=== PATIENT | female | born 1940 | race Asian ===

== ENCOUNTER 2019-04-28 11:23 | Emergency (ER) | payer OTHER ==
[~2019-04-28] VITALS: Ht 157.5 cm; Wt 87.5 kg
[2019-04-28 11:23] VITALS: BP 187/80; TEMP 97.7
[2019-04-28 12:10] LABS: PLATELET COUNT 207 K/uL (152-353)
[2019-04-28 12:17] LABS: POTASSIUM 4.2 mmol/L (3.6-5.2)
[2019-04-28] MEDS ORDERED: DIVA125C PO ×2 (13:39→13:40)
[2019-04-28] MEDS ORDERED: CORRECTOL100 MG PO (13:42)
[2019-04-28] MEDS ORDERED: DONEPEZIL HYDRO10 M1 PO (13:43)
[2019-04-28] MEDS ORDERED: FERROUS SULF325 M1 PO (13:44)
[2019-04-28] MEDS ORDERED: KP FOLIC ACID1 MG PO (13:46)
[2019-04-28] MEDS ORDERED: ACCU-CHEK COMBO XX (13:52)
[2019-04-28] MEDS ORDERED: GABA300C2 PO (13:53)
[2019-04-28] MEDS ORDERED: ISOS30TA17 PO (13:54)
[2019-04-28] MEDS ORDERED: LACTSYP31 PO (13:56)
[2019-04-28] MEDS ORDERED: FURO20TA67 PO (13:58)
[2019-04-28] MEDS ORDERED: INSUINJP SC (13:59)
[2019-04-28] MEDS ORDERED: METO5TAB38 PO (14:00)
[2019-04-28] MEDS ORDERED: MULTIVITAMI1 PO (14:02)
[2019-04-28] MEDS ORDERED: BUSPIRONE10 MG PO (14:03)
[2019-04-28] MEDS ORDERED: CARV3.12 PO (14:03)
[2019-04-28] MEDS ORDERED: MEMANTINE HCL10 MG PO (14:04)
[2019-04-28] MEDS ORDERED: NITR0.4S2 SL (14:08)
[2019-04-28] MEDS ORDERED: TRAMADOL HYDROC50 MG PO (14:09)
[2019-04-28] MEDS ORDERED: TYLENOL325 MG PO (14:10)
[2019-05-17] MEDS ORDERED: RISP0.25 PO (09:20)
[2019-05-17] MEDS ORDERED: LORA10TA3 PO (09:20)
[2019-05-17] MEDS ORDERED: DIVA125C PO ×2 (09:21)
[2019-05-17] MEDS ORDERED: CARV3.12 PO (09:23)
[2019-05-17] MEDS ORDERED: BUSP5TAB2 PO (09:23)
[2019-05-17] MEDS ORDERED: TYLENOL325 MG PO (09:23)
[2019-05-17] MEDS ORDERED: DONEPEZIL HYDRO10 M1 PO (09:24)
[2019-05-17] MEDS ORDERED: ISOS30TA17 PO (09:24)
[2019-05-17] MEDS ORDERED: FURO20TA67 PO (09:24)
[2019-05-17] MEDS ORDERED: GABA300C2 PO (09:24)
[2019-05-17] MEDS ORDERED: INSUINJP SC (09:24)
[2019-05-17] MEDS ORDERED: KP FOLIC ACID1 MG PO (09:24)
[2019-05-17] MEDS ORDERED: CORRECTOL100 MG PO (09:24)
[2019-05-17] MEDS ORDERED: FERROUS SULF325 M1 PO (09:24)
[2019-05-17] MEDS ORDERED: METO5TAB38 PO (09:25)
[2019-05-17] MEDS ORDERED: MULTIVITAMI1 PO (09:25)
[2019-05-17] MEDS ORDERED: MEMANTINE HCL10 MG PO (09:25)
[2019-05-17] MEDS ORDERED: NITR0.4S2 SL (09:25)
[2019-05-17] MEDS ORDERED: LACTSYP31 PO (09:25)
== END 2019-04-28 12:49 | disposition other institution (70) ==
LOC: ED 11:23
PROVIDERS: Emergency Medicine
DX: F28 Other psychotic disorder not due to a substance or known physiological condition (principal); N17.9 Acute kidney failure, unspecified; Z04.6 Encounter for general psychiatric examination, requested by authority
CPT/HCPCS: 80053; 81000; 85027; 87077; 87086; 87088; 87186; 93005; 99285